=== PATIENT | female | born 1980 | race Caucasian/White ===

== ENCOUNTER 2024-01-21 06:20 | Emergency (ER) | payer OTHER ==
[2024-01-21] MEDS: Ketorolac 30 MG/ML SDV IM ONE (06:58)
== END 2024-01-21 08:33 | disposition home or self-care (01) ==
LOC: SUPCPDRO 06:20 → FB.ED 06:20
DX: S16.1XXA Strain of muscle, fascia and tendon at neck level, initial encounter (principal); S39.012A Strain of muscle, fascia and tendon of lower back, initial encounter; Z88.8 Allergy status to other drugs, medicaments and biological substances; V49.40XA Driver injured in collision with unspecified motor vehicles in traffic accident, initial encounter
CPT/HCPCS: 72125; 72128; 72131; 96372; 99284; J1885